=== PATIENT | male | born 1975 | race Caucasian/White ===

== ENCOUNTER → 2020-04-27 | Outpatient (CLI) | payer BC ==
[~2020-04-27] MED LIST: Z.0.CITALOPRAM HBR20 PO; Z.2.TRIAMTERENE-HC1 PO; [UNRECOGNIZED DRUG - OTHER] PO
--- NOTE | 2020-04-27 10:01 | Diagnostic Imaging Report ---
TECHNIQUE: Magnetic resonance imaging of the LEFT foot was performed WITHOUT injected contrast. HISTORY: Foreign body COMPARISON: None available. DISCUSSION: Bone: No bone marrow edema or fracture. No T1 replacement. Bipartite tibial sesamoid. Joints: Joint spaces are maintained. Normal forefoot alignment. Soft Tissues: Linear tract within the plantar aspect of the forefoot under the fourth and fifth toes extending approximately 2.3 cm with surrounding edema. The tract is void of signal which may reflect foreign body. IMPRESSION: Linear track/foreign body plantar aspect of the forefoot under the fourth and fifth toes with surrounding edema. No abscess or osteomyelitis. Signed by: Dr. Jose Buck M.D. on 04/27/2020 9:58 AM
== END ==
LOC: MRI 08:27
PROVIDERS: ATTEND Family Medicine
DX: S90.852A Superficial foreign body, left foot, initial encounter (principal)

== ENCOUNTER → 2022-05-03 | Day surgery (SDC) | payer BC, OTHER ==
[~2022-05-03] MED LIST changes: +CLINDAMYCIN HC150 MG PO; +FENTANYL CITRATE/PF 100MCG/2 ML INJ ONE; +LEXAPRO20 MG PO; +LIDOCAINE HCL 2% LOCAL INJ 5 ML SDV VIAL INJ ONE; +LISINOPRIL10 MG PO; +MIDAZOLAM HCL 2 MG/2 ML VIAL ONE; +PROPOFOL IV EMULSION 10 MG/ML 20 ML VIAL ONE; +SIMETHICONE 40 MG/0.6 ML BTL ONE; +VALSARTAN-HCTZ1 EAC4 PO
[2022-05-03 12:25] VITALS: BP 132/91
[2022-05-03 13:18] LABS: WBC,FECAL (FECAL LACTOFERRIN) NEGATIVE (NEGATIVE)
== END | disposition home or self-care (01) ==
LOC: OR 09:06
PROVIDERS: ATTEND Internal Medicine Gastroenterology
DX: K62.89 Other specified diseases of anus and rectum (principal); D12.0 Benign neoplasm of cecum; K64.8 Other hemorrhoids; K60.2 Anal fissure, unspecified; Z71.3 Dietary counseling and surveillance; I10 Essential (primary) hypertension; F41.9 Anxiety disorder, unspecified; F32.A Depression, unspecified; Z71.89 Other specified counseling; F17.290 Nicotine dependence, other tobacco product, uncomplicated; Z71.6 Tobacco abuse counseling; Z01.810 Encounter for preprocedural cardiovascular examination; Z01.812 Encounter for preprocedural laboratory examination; Z20.822 Contact with and (suspected) exposure to COVID-19; Z79.899 Other long term (current) drug therapy; Z68.33 Body mass index [BMI] 33.0-33.9, adult; Z80.0 Family history of malignant neoplasm of digestive organs
CPT/HCPCS: 0223U; 36415; 45380; 83630; 83993; 87045; 87177; 87324; 87328; 87449; 93005; J2001; J2250; J2704; J3010; 45378

== ENCOUNTER 2024-07-20 05:02 | Emergency (ER) | payer OTHER ==
[~2024-07-20] VITALS: Ht 175.3 cm; Wt 103.4 kg
[~2024-07-20 05:02] MED LIST changes: -FENTANYL CITRATE/PF 100MCG/2 ML INJ ONE; -LIDOCAINE HCL 2% LOCAL INJ 5 ML SDV VIAL INJ ONE; -MIDAZOLAM HCL 2 MG/2 ML VIAL ONE; -PROPOFOL IV EMULSION 10 MG/ML 20 ML VIAL ONE; -SIMETHICONE 40 MG/0.6 ML BTL ONE
[2024-07-20 05:22] VITALS: PULSE 57; RESP 18; TEMP 98.8
[2024-07-20 05:49] LABS: BASOPHILS % 0.7 % (0.0-1.0); EOSINOPHILS # (AUTO) 0.2 (0.0-0.4); EOSINOPHILS % 3.2 % (0.0-6.0); HEMATOCRIT 46.6 % (38.2-49.6); HEMOGLOBIN 15.4 g/dL (14.0-18.0); LYMPHOCYTES # (AUTO) 1.9 (1.0-3.2); LYMPHOCYTES % 33.5 % (18.0-39.1); MEAN CORPUSCULAR VOLUME 90.7 fL (81-99); MONOCYTES # (AUTO) 0.5 (0.2-0.8); NEUTROPHILS # (AUTO) 3.1 (2.1-6.9); NEUTROPHILS % 54.2 % (38.7-80.0); PLATELET COUNT 307 x10e3/uL (140-360); RED BLOOD COUNT 5.14 x10e6/uL (4.3-5.7); RED CELL DISTRIBUTION WIDTH 12.9 % (11.7-14.4); WHITE BLOOD COUNT 5.65 x10e3/uL (4.8-10.8)
[2024-07-20] MEDS: MECLIZINE HCL 12.5 MG TAB PO ONE (06:06)
[2024-07-20 06:09] LABS: ALANINE AMINOTRANSFERASE 42 IU/L (0-55); ALBUMIN/GLOBULIN RATIO 1.3 (0.8-2.0); ALKALINE PHOSPHATASE 60 IU/L (40-150); ANION GAP 13.5 mmol/L (8-16); BILIRUBIN,TOTAL 0.3 mg/dL (0.2-1.2); BLOOD UREA NITROGEN 14 mg/dL (7-26); BUN/CREATININE RATIO 12 (6-25); CALCIUM 9.6 mg/dL (8.4-10.2); CARBON DIOXIDE 28 mmol/L (22-29); CHLORIDE 103 mmol/L (98-107); CREATINE KINASE 59 IU/L (30-200); CREATININE, SERUM 1.13 mg/dL (0.72-1.25); EST GLOMERULAR FILTRATION RATE 79 ML/MIN (>=60); GLUCOSE 109 mg/dL (74-118); POTASSIUM 4.5 mmol/L (3.5-5.1); SODIUM 140 mmol/L (136-145)
[2024-07-20 06:20] LABS: TROPONIN I < 0.001 ng/mL (0-0.300)
[2024-07-20] MEDS ORDERED: IOPAMIDOL 370 MG/ML 100 ML INFUS..BTL INJ ONE (06:26)
[2024-07-20] MEDS ORDERED: MECLIZINE HCL12.5 MG PO (08:52)
[2024-07-20 09:04] VITALS: BP 154/99; PULSE 53; RESP 15; O2SAT 100
== END 2024-07-20 09:00 | disposition home or self-care (01) ==
LOC: ER 05:13
DX: R42 Dizziness and giddiness (principal); I10 Essential (primary) hypertension; M10.9 Gout, unspecified; F17.210 Nicotine dependence, cigarettes, uncomplicated
CPT/HCPCS: 36415; 70450; 71275; 74174; 80053; 82550; 84484; 85025; 93005; 99284; J8597; Q9967